=== PATIENT | male | born 1990 | race American Indian/Alaskan Native ===

== ENCOUNTER 2017-06-23 16:35 | Emergency (ER) | payer SELFPAY ==
[2017-06-23 17:06] VITALS: BP 130/76
== END 2017-06-24 06:16 | disposition left against medical advice (07) ==
LOC: ED 16:35
DX: R20.2 Paresthesia of skin (principal); Z53.21 Procedure and treatment not carried out due to patient leaving prior to being seen by health care provider

== ENCOUNTER 2017-08-25 21:59 | Emergency (ER) | payer OTHER ==
[2017-08-26 11:22] VITALS: BP 143/73
--- NOTE | 2017-08-26 11:50 | Emergency Department Report ---
Chief Complaint: Fever Stated Complaint: BODYACHES, FEVER Time Seen by Provider: 08/26/17 11:29 - HPI History of Present Illness: Mr. Dozier presents with flu-like illness with fever, headache, body aches and diarrhea. Anticipate discharge with supportive instructions. - Exam Vital Signs: Vital Signs 08/25/17 08/26/17 23:11 11:21 Temperature 98.5 F 98 F Pulse Rate 79 68 Respiratory 18 16 Rate Blood Pressure 137/71 Blood Pressure 143/73 [Right] O2 Sat by Pulse 98 100 Oximetry MSE screening note: Focused history and physical exam performed. Due to findings the following was ordered: ED Disposition for MSE Condition: Stable Referrals: PRIMARY CARE, [Primary Care Provider] - 3-5 Days
--- NOTE | 2017-08-26 11:51 | Emergency Department Report ---
HPI - General Chief Complaint: Fever Time Seen by Provider: 08/26/17 11:29 - HPI HPI: Mr. Dozier presents with flu-like illness with fever, headache, body aches and diarrhea. Patient reports that he has been exposed to someone with similar symptoms. He said he felt better than he did yesterday. Pain is 5 out of 10 achy and [id number]-fojrkka icy hot without any relief. Denies any sore throat or difficulty breathing. Denies any chest pain or shortness of breath. ED Past Medical Hx - Past Medical History Previous Medical History?: No - Surgical History Past Surgical History?: No - Family History Family history: no significant - Social History Smoking Status: Current Every Day Smoker Substance Use Type: None - Medications Home Medications: Home Medications Medication Instructions Recorded Confirmed Last Taken Type Cetirizine HCl [ZyrTEC] 10 mg PO QAM 10 Days #10 capsule 08/26/17 Unknown Rx Fluticasone [Flonase] 1 spray NS QDAY 10 Days #1 bottle 08/26/17 Unknown Rx guaiFENesin/CODEINE [Robitussin AC] 5 ml PO Q12H PRN #50 ml 08/26/17 Unknown Rx ED Review of Systems ROS: Stated complaint: BODYACHES, FEVER Other details as noted in HPI Comment: All other systems reviewed and negative Constitutional: chills, fever Eyes: denies: eye pain, eye discharge ENT: congestion. denies: throat pain Respiratory: see HPI, cough. denies: orthopnea, shortness of breath, SOB with exertion, SOB at rest, stridor, wheezing Cardiovascular: denies: chest pain, palpitations, edema, syncope Gastrointestinal: denies: abdominal pain, nausea, vomiting Musculoskeletal: myalgia. denies: back pain, joint swelling, arthralgia Skin: denies: rash Neurological: denies: headache Physical Exam - Physical Exam Vital Signs: Vital Signs 08/25/17 08/26/17 23:11 11:21 Temperature 98.5 F 98 F Pulse Rate 79 68 Respiratory 18 16 Rate Blood Pressure 137/71 Blood Pressure 143/73 [Right] O2 Sat by Pulse 98 100 Oximetry General: This is a 27-year-old male well-nourished well-developed in no acute distress. Physical Exam: Head: Normocephalic atraumatic Ears: BIateral TM congested without erythema and loss of bony landmarks. Jerson EAC with normal exam. No mastoid bone tenderness. Mouth: Moist, no pharyngeal erythema or exudate . No tonsillar erythema or exudate. UVULA midline and oral airways patent. No peritonsillar abscess Neck: Nontender to palpate, supple, normal range of motion. No adenopathy. No c- spine tenderness. Nose: Bilateral nasal mucosa congested with clear drainage. Maxillary and frontal sinuses non-tender to palpate. Eyes: Bilateral Sclerae and conjunctiva without injection. Bilateral pupils equal and reactive to light. Bilateral lids are normal. Normal accommodation.BEOMI Lungs: Clear to auscultate bilaterally, no rhonchi wheezes or rales. Normal work of breathing and no chest wall tenderness. Dry cough Extremity: No clubbing, cyanosis or edema +2 pulses to all extremities and no neurovascular compromise CV: S1, S2. Regular rate and rhythm negative murmur. Capillary refill is less than 3 seconds Skin: Clean dry and intact, no rashes or lesions Psych: Normal mood and behavior ED Course Vital Signs 08/25/17 08/26/17 23:11 11:21 Temperature 98.5 F 98 F Pulse Rate 79 68 Respiratory 18 16 Rate Blood Pressure 137/71 Blood Pressure 143/73 [Right] O2 Sat by Pulse 98 100 Oximetry - Reevaluation(s) Reevaluation #1: 08/26/17 11:58 Patient stable throughout ED stay ED Medical Decision Making - Medical Decision Making ED course :patient here presented and flulike symptoms and was exposed to someone with similar incident but does not know if that person had the flu. Patient found to have acute viral syndrome with cough and congestion. I discussed diagnosis and treatment plan also discussed smoking cessation. He voiced understanding of diagnosis and treatment plan and follow-up. Patient discharged home on Zyrtec Flonase and Guaifenesin codeine. Critical care attestation.: If time is entered above; I have spent that time in minutes in the direct care of this critically ill patient, excluding procedure time. ED Disposition Clinical Impression: Acute viral syndrome, URI with cough and congestion Disposition: TO HOME OR SELFCARE Is pt being admited?: No Does the pt Need Aspirin: No Condition: Stable Instructions: Viral Syndrome (ED), Acute Cough (ED) Additional Instructions: Please increase her fluid intake to 2-3 liter of fluids per day Flush nostrils with saline nasal spray F/U with primary care physician as instructed Prescriptions: Cetirizine HCl [ZyrTEC] 10 mg PO QAM 10 Days #10 capsule Fluticasone [Flonase] 1 spray NS QDAY 10 Days #1 bottle guaiFENesin/CODEINE [Robitussin AC] 5 ml PO Q12H PRN #50 ml PRN Reason: Cough Referrals: PRIMARY CARE, [Primary Care Provider] - 2-3 Days Forms: Work/School Release Form(ED)
== END 2017-08-26 12:16 | disposition home or self-care (01) ==
LOC: ED 21:59
DX: J06.9 Acute upper respiratory infection, unspecified (principal); B34.9 Viral infection, unspecified; F17.200 Nicotine dependence, unspecified, uncomplicated
CPT/HCPCS: 99282

== ENCOUNTER 2019-06-17 15:24 | Emergency (ER) | payer SELFPAY ==
[2019-06-17 15:47] VITALS: BP 109/70
== END 2019-06-17 16:00 | disposition left against medical advice (07) ==
LOC: ED 15:24
DX: J06.9 Acute upper respiratory infection, unspecified (principal); Z53.21 Procedure and treatment not carried out due to patient leaving prior to being seen by health care provider